=== PATIENT | female | born 1990 | race Caucasian/White ===

== ENCOUNTER 2024-06-10 21:28 | Outpatient (CLI) | payer MEDICAID, SELFPAY | END 2024-06-10 21:29 | disposition home or self-care (01) | LOC: SLEEP 21:32 | PROVIDERS: Visit Provider Internal Medicine | DX: G47.33 Obstructive sleep apnea (adult) (pediatric) (principal); R09.02 Hypoxemia | CPT/HCPCS: 95810 ==